=== PATIENT | female | born 1995 | race Caucasian/White ===

== ENCOUNTER 2021-07-26 05:10 | Emergency (ER) | payer BC ==
[2021-07-26] MEDS ORDERED: GI Cocktail Oral Solution 30 ML PO ONE (05:31)
[2021-07-26 05:39] VITALS: BP 143/86; PULSE 103
[2021-07-26] MEDS ORDERED: LORazepam 1 MG Tab PO ONE (06:11)
[2021-07-26 06:14] LABS: ANION GAP 15.2 mmol/L (5-15); CHLORIDE,CL 105 mmol/L (98-107); SODIUM,NA 144 mmol/L (136-145)
[2021-07-26] MEDS ORDERED: Take Home: Ondansetron 4 MG Tab.DIS, 5 Tab Pack PO ONE (06:42)
== END 2021-07-26 06:52 | disposition home or self-care (01) ==
LOC: VM.ED 05:10
DX: R10.13 Epigastric pain (principal); E03.9 Hypothyroidism, unspecified
CPT/HCPCS: 36415; 80053; 81003; 81025; 83690; 84443; 85025; 86140; 99284; A9270; Q0162